=== PATIENT | female | born 1970 | race Two or more races ===

== ENCOUNTER 2017-06-27 07:23 | Day surgery (SDC) | payer MEDICAID ==
[~2017-06-27 07:23] MED LIST: CEFAZOLIN 2 GM/50 ML (PMX) 50 ML IVPB; DEXAMETHASONE 4 MG/ML 1 ML INJ; LIDOCAINE 2% (SDV) 5 ML INJ; ONDANSETRON 4 MG INJ; SOD CHLORIDE 0.9% 1,000 ML IV
[2017-06-27] MEDS ORDERED: BUPIVACAINE 0.5% (SDV) 30 ML INJ (09:46)
[2017-06-27] MEDS ORDERED: LIDOCAINE 1%/EPI 30 ML INJ (09:46)
[2017-06-27] MEDS ORDERED: PROPOFOL 60 ML (09:50)
[2017-06-27] MEDS ORDERED: FENTAnyl 50 MCG/ML VIAL (09:51)
[2017-06-27] MEDS ORDERED: hydrALAzine 20 MG INJ IV (10:00)
[2017-06-27] MEDS ORDERED: OXYCODONE/ACETAMINOPHEN (5/325) TAB PO ×2 (10:00)
[2017-06-27] MEDS ORDERED: EPHEDrine SULFATE 50 MG/5 ML SYG IV (10:00)
[2017-06-27] MEDS ORDERED: MIDAZOLAM 1 MG/ML 2 ML INJ IV (10:00)
[2017-06-27] MEDS ORDERED: HYDROmorphONE (0.2 MG/ML) 10ML SYG IV ×2 (10:00)
[2017-06-27] MEDS ORDERED: ALBUTEROL 0.083% (NEB) 2.5 MG/3 ML AMP HHN (10:00)
[2017-06-27] MEDS ORDERED: MEPERIDINE 25 MG INJ IV (10:00)
[2017-06-27] MEDS ORDERED: LABETALOL HCL 20MG INJ IV (10:00)
[2017-06-27] MEDS ORDERED: KETOROLAC 30 MG INJ IV (10:00)
[2017-06-27] MEDS ORDERED: FENTAnyl 50 MCG/ML VIAL IV ×2 (10:00)
[2017-06-27] MEDS ORDERED: EPINEPHrine 1 MG INJ ×2 (10:02→10:06)
[2017-06-27] MEDS ORDERED: CEFAZOLIN 1 GM INJ (11:07)
[2017-06-27] MEDS: ONDANSETRON 4 MG INJ IV ×2 (11:20→13:49)
[2017-06-27] MEDS: FENTAnyl 50 MCG/ML VIAL IV (11:20)
[2017-06-27] MEDS: HYDROmorphONE (0.2 MG/ML) 10ML SYG IV ×4 (11:22→11:46)
[2017-06-27] MEDS ORDERED: HYDROCODONE/APAP (7.5/325) TAB PO (11:30)
[2017-06-27] MEDS: DIPHENHYDRAMINE 50 MG INJ IV (11:32)
== END 2017-06-27 14:35 | disposition home or self-care (01) ==
LOC: SDS 07:23
DX: N60.22 Fibroadenosis of left breast (principal)
CPT/HCPCS: 19301; 84703; 88307